=== PATIENT | female | born 1995 ===

== ENCOUNTER 2020-12-25 19:27 | Inpatient (IN) | payer OTHER ==
[~2020-12-25] VITALS: Ht 180.3 cm; Wt 116.4 kg
[2020-12-25] VITALS (7 sets, daily range): BP systolic 112–148; BP diastolic 55–91; PULSE 69–90; TEMP 98.4
--- NOTE | 2020-12-25 19:40 | NUR ---
G1L0. 38-6. Pt ambulatory to LDR 5 with spouse. Clean gown on. EFM and TOCO explained and applied. Pt denies contractions, leaking of fluids or vaginal bleeding. Plan of care and induction process explained. Questions answered. 1954: IV started and labs obtained via IV site. LR bolus infusing without difficulty. 2034: SVE 0/-3 and cytotec placed by Chitra MAYA. Pt repostioned to left lateral position. Call light within reach.
[2020-12-25] MEDS ORDERED: PRENATAL MVI PO (20:16)
[2020-12-25] MEDS ORDERED: OSCAL 500 TAB500 MG PO (20:16)
[2020-12-25] MEDS ORDERED: STOOL SOFTENER100 M2 PO (20:17)
[2020-12-25 20:47] LABS: BASO # 0.1 K/mm3 (0.0-0.2); BASO % 0.4 % (0.0-2.0); EOS # 0.2 K/mm3 (0.0-0.7); GRAN # 11.8 K/mm3 (1.4-6.5); GRAN % 74.7 % (42.2-75.2); HEMOGLOBIN 12.2 g/dl (12.5-16.0); LYMPH # 2.4 K/mm3 (1.2-3.4); LYMPH % 15.5 % (20.0-51.0); MEAN CELL VOLUME 86 fl (80.0-100.0); MEAN CORPUSCULAR HEMOGLOBIN 29 pg (27.0-31.0); MEAN CORPUSCULAR HGB CONC 33 g/dl (33.0-37.0); MEAN PLATELET VOLUME 11.5 fl (7.4-10.4); MONO # 1.2 K/mm3 (0.1-0.6); MONO % 7.4 % (1.7-9.3); PLATELET COUNT 265 K/mm3 (130-400); RED BLOOD COUNT 4.25 M/mm3 (4.10-5.30); REDCELL DISTRIBUTION WIDTH-CV 13.2 % (11.5-14.5)
[2020-12-25 20:51] LABS: HEMATOCRIT 36.7 % (37.0-47.0)
[2020-12-26] VITALS (64 sets, daily range): BP systolic 88–149; BP diastolic 52–91; PULSE 67–97; TEMP 97.7–98.8
--- NOTE | 2020-12-26 08:15 | NUR ---
RN AT BEDSIDE. PT REPOSITIONED AND LR INCREASED.
--- NOTE | 2020-12-26 08:18 | NUR ---
RN AT BEDSIDE ADJUSTING FHR MONITOR
--- NOTE | 2020-12-26 10:41 | NUR ---
RN AT BEDSIDE. PT REPOSITIONING AND UP TO BATHROOM.
--- NOTE | 2020-12-26 10:56 | NUR ---
0835 Dr. Powell at pts bedside reviewing FHR strip. SVE /-3. [address] Powell. Clear fluid noted. Plan of care and safety precautions discussed with pt. Pt verbalizes understanding.
--- NOTE | 2020-12-26 12:06 | NUR ---
RN AT BEDSIDE. PT SITTING UPRIGHT FOR EPIDURAL PLACEMENT. 1146 SINGLE SHOT GIVEN. PT TOLERATES WELL. SAFETY PRECAUTIONS AND PLAN OF CARE DISCUSSED. PT VERBALIZES UNDERSTANDING.
--- NOTE | 2020-12-26 13:30 | NUR ---
SIDE LYING HIP RELEASE RN AT BEDSIDE
--- NOTE | 2020-12-26 14:45 | NUR ---
Early and variable decels noted.
--- NOTE | 2020-12-26 16:15 | NUR ---
Early, late and variable decels noted. Patient repositioned. Will continue to monitor.
--- NOTE | 2020-12-26 18:25 | NUR ---
Report received from ZULMA Jane. Pt laying right lateral attemping to side push with RN. 182: Pt assisted to SF to continue pushing with this RN. Instructions on pushing with contractions given to pt and questions answered. 183: at bedside to assess pushing. Pt pushes with provider. Decision on vacuum placement made at this time with pt and provider. Pt very anxious. Emotional support given to pt and spouse. 184: Pt assisted into footplates and vacuum placed by . 184: Suction to vacuum by provider. Traction placed and pt pushes with provider with contractions. 184: Pitocin increased to 18mus/hr per 's verbal request. 185: Pop off number 1. Pt continues pushing with this contraction and vacuum reapplied after contraction is complete. 185: Vacuum assisted delivery of infants head by . Vacuum removed and NC X1 reduced. Following spontanteous delivery of infants shoulders and body. to mothers chest and care assummed by Terell MAYA. Pitocin stopped per protocol. 185: Spontaneous delivery of intact placenta by . Pitocin resummed at 333mus/hr per procotol. Left inner labial laceration and vaginal laceration repaired by provider. Fundal message and pericare completed. Pads changed and pt repostioned in bed. Ice pack placed to perineum. Plan of care and safety precautions explained.
--- NOTE | 2020-12-26 21:35 | NUR ---
Bleeding WNL. Pt assisted to edge of bed. Epidural catheter removed without difficulty. Pt denies lightheadedness or dizziness. Pt ambulatory to bathroom, standby assist. Pt unable to void. Encouraged to drink plenty of fluids and we will reattempt to void. Pt ambulatory to 214 and oriented to room. Call light within reach.
[2020-12-27] VITALS: BP 113/65; PULSE 87; TEMP 99.3
[2020-12-27 03:45] VITALS: BP 119/73; PULSE 99; TEMP 98.9
[2020-12-27 09:15] VITALS: BP 114/62; PULSE 87; TEMP 97.8
[2020-12-27 10:00] VITALS: PULSE 146; TEMP 97.4
--- NOTE | 2020-12-27 10:13 | NUR ---
Initial visit; Parents thanked Morning Nanny for offering congratulations and God's blessings for the of their daughter. Morning Nanny thanked family for choosing [facility].
[2020-12-27 17:06] VITALS: BP 126/72; PULSE 86; TEMP 98.6
[2020-12-28 07:48] VITALS: BP 120/63; PULSE 74; TEMP 98.6
[2020-12-28] MEDS ORDERED: PERCOCET 325 MG1 TA2 PO (08:58)
[2020-12-28] MEDS ORDERED: MOTRIN 800800 MG/TAB PO (08:58)
== END 2020-12-28 12:40 | disposition home or self-care (01) | DRG 807 ==
LOC: LDR 19:27 → OB 19:27
PROVIDERS: ADMIT Obstetrics & Gynecology
PROC: 3E033VJ Introduction of Other Hormone into Peripheral Vein, Percutaneous Approach (ICD-10-PCS; 2020-12-25)
PROC: 3E0P7VZ Introduction of Hormone into Female Reproductive, Via Natural or Artificial Opening (ICD-10-PCS; 2020-12-25)
PROC: 10D07Z6 Extraction of Products of Conception, Vacuum, Via Natural or Artificial Opening (ICD-10-PCS; principal; 2020-12-26)
PROC: 10907ZC Drainage of Amniotic Fluid, Therapeutic from Products of Conception, Via Natural or Artificial Opening (ICD-10-PCS; 2020-12-26)
PROC: 0UQGXZZ Repair Vagina, External Approach (ICD-10-PCS; 2020-12-26)
DX: O14.04 Mild to moderate pre-eclampsia, complicating childbirth (principal); Z37.0 Single live birth; O99.824 Streptococcus B carrier state complicating childbirth; O76 Abnormality in fetal heart rate and rhythm complicating labor and delivery; O71.4 Obstetric high vaginal laceration alone; O26.813 Pregnancy related exhaustion and fatigue, third trimester; O69.81X0 Labor and delivery complicated by cord around neck, without compression, not applicable or unspecified; Z3A.39 39 weeks gestation of pregnancy
CPT/HCPCS: J2540; J2590; J2795; J7120